=== PATIENT | male | born 2000 | race Two or more races ===

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

== ENCOUNTER 2020-01-04 20:53 | Emergency (ER) | payer BC ==
[2020-01-04 21:05] VITALS: BP 126/68
--- NOTE | 2020-01-04 21:15 | UC ---
Throat Pain/Nasal Zackary HPI - HPI Summary HPI Summary: 19-year-old male presents with 3 day history of sore throat. Denies fever, chills, ear pain, nasal congestion, dysphagia, cough, chest pain, shortness of breath, abdominal pain, nausea, or vomiting. - History of Current Complaint Chief Complaint: UCGeneralIllness Stated Complaint: SORE THROAT Time Seen by Provider: 01/04/20 20:59 Hx Obtained From: Patient Pain Intensity: 6 - Allergies/Home Medications Allergies/Adverse Reactions: Allergies Allergy/AdvReac Type Severity Reaction Status Date / Time milk Allergy Eosinophilic Verified 01/04/20 21:05 Colitis Home Medications: Home Medications Albuterol HFA INHALER* [Ventolin HFA Inhaler*] 2 puff INH Q4H PRN 02/08/17 [ History Confirmed 01/04/20] Sertraline* [Zoloft*] 100 mg PO BEDTIME 02/08/17 [History Confirmed 01/04/20] Ibuprofen TAB* [Motrin TAB* 800 MG] 800 mg PO Q8H #30 tab 02/05/18 [Rx Confirmed 01/04/20] Lansoprazole SOLUTAB* [Prevacid Solutab*] 30 mg SL DAILY 02/05/18 [History Confirmed 01/04/20] LevoCETirizine TAB (NF) [Xyzal TAB (NF)] 5 mg PO DAILY 02/05/18 [History Confirmed 01/04/20] Budesonide/Formote 160/4.5(NF) [Symbicort 160/4.5 (NF)] 1 puff INH DAILY [History Confirmed 01/04/20] Acetaminophen [Tylenol] 325 mg PO ONCE PRN 01/04/20 [History Confirmed 01/04/20] PMH/Surg Hx/FS Hx/Imm Hx Respiratory History: Asthma GI/ History: Gastroesophageal Reflux - Surgical History Surgical History: None - Family History Known Family History: Negative: Cardiac Disease, Hypertension, Diabetes - Social History Occupation: Student Lives: Dormitory/Roommates Alcohol Use: None Substance Use Type: None Smoking Status (MU): Never Smoked Tobacco - Immunization History Most Recent Influenza Vaccination: UTD Most Recent Tetanus Shot: UTD Most Recent Pneumonia Vaccination: NONE Vaccination Up to Date: Yes Review of Systems All Other Systems Reviewed And Are Negative: Yes Constitutional: Negative: Fever, Chills Eyes: Negative: Drainage, Eye Redness ENT: Positive: Sore Throat. Negative: Ear Ache, Nasal Discharge, Sinus Congestion, Sinus Pain/Tenderness Respiratory: Negative: Shortness Of Breath, Cough Cardiovascular: Negative: Chest Pain Gastrointestinal: Negative: Abdominal Pain, Vomiting, Diarrhea, Nausea Genitourinary: Positive: Negative Musculoskeletal: Positive: Negative Neurological/Mental Status: Positive: Negative Is Patient Immunocompromised?: No Physical Exam - Summary Physical Exam Summary: GENERAL APPEARANCE: Well developed, well nourished, alert and cooperative, and appears to be in no acute distress. EYES: Conjunctiva clear. No drainage. EARS: External auditory canals and tympanic membranes clear, hearing grossly intact. NOSE: No nasal discharge. THROAT: Pharyngeal erythema. 2+ tonsils without exudate. Uvula midline. NECK: Neck supple, non-tender. Mild anterior and posterior cervical lymphadenopathy. CARDIAC: Normal S1 and S2. No S3, S4 or murmurs. Rhythm is regular. There is no peripheral edema, cyanosis or pallor. Extremities are warm and well perfused. Capillary refill is less than 2 seconds. Peripheral pulses intact. LUNGS: Clear to auscultation without rales, rhonchi, wheezing or diminished breath sounds. ABDOMEN: Positive bowel sounds. Soft, nondistended, nontender. No guarding or rebound. No masses or hepatosplenomegally. MUSKULOSKELETAL: ROM intact to all extremities. No joint erythema or tenderness. Normal muscular development. Normal gait. SKIN: Skin normal color, texture and turgor with no lesions or eruptions. Triage Information Reviewed: Yes Vital Signs: Initial Vital Signs Temp 99.1 F 01/04/20 21: Pulse 80 01/04/20 21:02 Resp 15 01/04/20 21:02 BP 126/68 01/04/20 21: Pulse Ox 100 01/04/20 21:02 Vital Signs Reviewed: Yes Throat Pain/Nasal Course/Dx - Course Course Of Treatment: 19-year-old male presents with 3 day history of sore throat. Denies fever, chills, ear pain, nasal congestion, dysphagia, cough, chest pain, shortness of breath, abdominal pain, nausea, or vomiting. Afebrile. Vital signs stable. Patient had no nasal congestion, normal TMs, pharyngeal erythema, 2+ tonsils without exudate, anterior and posterior cervical lymphadenopathy, clear bilateral breath sounds, soft, nontender abdomen without hepatosplenomegaly, and otherwise unremarkable exam. Rapid strep test was negative. Reviewed results with the patient. We discussed that his symptoms likely represented a viral pharyngitis although with the posterior cervical lymphadenopathy could not rule out the possibility of mononucleosis with the short duration of symptoms it would be too early to test at this time. Recommending symptomatic treatment for a viral pharyngitis. He is to follow-up with his primary care provider in the 70s symptoms are not improving. Anticipatory guidance and warning symptoms were reviewed with the patient. Verbalizes understanding and agrees with plan of care. - Differential Dx/Diagnosis Differential Diagnosis/HQI/PQRI: Mononucleosis, Peritonsillar Abscess, Pharyngitis, Tonsillitis, URI Provider Diagnosis: Acute viral pharyngitis Discharge ED - Sign-Out/Discharge Documenting (check all that apply): Patient Departure All imaging exams completed and their final reports reviewed: No Studies - Discharge Plan Condition: Stable Disposition: HOME Patient Education Materials: Pharyngitis (ED) Referrals: Evangelist Valverde MD [Primary Care Provider] - 5 Days Additional Instructions: Your rapid strep test in the clinic today was negative. Your symptoms are likely from a viral infection. Viral infections do not respond to antibiotics and are limited to the treatment of symptoms. Viral infections typically run their course in 7-10 days. Drink plenty of fluids to avoid dehydration especially if you are running any fever. Use salt water gargles several times a day. Take over the counter acetaminophen (Tylenol) or ibuprofen (Advil, Motrin) according to directions as needed for pain or fever. You may also use Chloraseptic spray or Cepacol lonzenges according to directions which contain a numbing medication and can provide some temporary relief from your sore throat. Return here or follow up with your primary care provider in 5-7 days if symptoms persist. Seek immediate medical attention in the emergency room if you have fever greater than 100.5 F despite taking acetaminophen or ibuprofen, are unable to swallow or develop drooling, are unable to open your mouth fully, are unable to eat or drink, have pain that is not relieved with over the counter pain medication, or have any difficulty breathing. - Billing Disposition and Condition Condition: STABLE Disposition: Home
== END 2020-01-04 21:36 | disposition home or self-care (01) ==
LOC: UCCORT 20:53
DX: J02.8 Acute pharyngitis due to other specified organisms (principal); B97.89 Other viral agents as the cause of diseases classified elsewhere; J45.909 Unspecified asthma, uncomplicated; K21.9 Gastro-esophageal reflux disease without esophagitis; Z91.011 Allergy to milk products; Z79.899 Other long term (current) drug therapy; Z79.52 Long term (current) use of systemic steroids
CPT/HCPCS: 87651; 99211; G0463